=== PATIENT | female | born 1955 | race Caucasian/White ===

== ENCOUNTER 2018-08-16 16:01 | Emergency (ER) | payer BC ==
[~2018-08-16] VITALS: Ht 170.2 cm; Wt 68.0 kg
[2018-08-16] MEDS ORDERED: LIPITOR10 MG PO (16:11)
[2018-08-16] MEDS ORDERED: SYNTHROID25 MC1 PO (16:11)
[2018-08-16] MEDS ORDERED: NORCO 10-325 T1 EACH PO (17:38)
[2018-08-16 18:31] VITALS: BP 132/75
== END 2018-08-16 18:31 | disposition home or self-care (01) ==
LOC: ER 16:01
DX: S51.011A Laceration without foreign body of right elbow, initial encounter (principal); M25.551 Pain in right hip; Z23 Encounter for immunization; W10.9XXA Fall (on) (from) unspecified stairs and steps, initial encounter; Y93.89 Activity, other specified; Y92.89 Other specified places as the place of occurrence of the external cause; Y99.8 Other external cause status; E78.5 Hyperlipidemia, unspecified; E03.9 Hypothyroidism, unspecified; Z91.040 Latex allergy status